=== PATIENT | male | born 1975 | race Two or more races ===

== ENCOUNTER 2018-09-30 01:30 | Emergency (ER) | payer SELFPAY ==
[~2018-09-30] VITALS: Ht 177.8 cm; Wt 79.4 kg
[2018-09-30 03:16] LABS: Basophils # (auto) 0.1 uL; Basophils % (auto) 0.4 % (0.0-2.0); Eosinophils # (auto) 0.2 uL; Eosinophils % (auto) 1.1 % (0.0-7.0); Hematocrit 38.7 % (41.0-53.0); Hemoglobin 12.8 g/dL (13.5-17.5); Lymphocytes # (auto) 1.4 uL; Lymphocytes % (auto) 8.6 % (10.0-50.0); Mean Corpuscular Hemoglobin 28.4 pg (28.0-32.0); Mean Corpuscular Volume 85.9 fL (80.0-100.0); Monocytes # (auto) 1.3 uL; Neutrophils # (auto) 13.8 uL; Neutrophils % (auto) 81.9 % (37.0-80.0); Platelet Count (auto) 433 10^3/uL (140-450); Red Cell Distribution Width 12.6 % (11.8-14.3); White Blood Cell 16.8 10^3/uL (4.4-10.8)
[2018-09-30 03:19] VITALS: BP 112/65
[2018-09-30 03:24] LABS: Albumin 3.1 g/dL (3.4-5.0); Calcium 9.2 mg/dL (8.5-10.1); Potassium 4.3 mmol/L (3.5-5.1)
[2018-09-30 03:27] LABS: BUN/Creatinine Ratio 13.3; Bilirubin, Total 1.1 mg/dL (0.2-1.0); Total Protein 9.1 g/dL (6.4-8.2)
[2018-09-30] MEDS ORDERED: ONDANSETRON HCL 4 MG/2 ML VIAL IM ONE (05:45)
[2018-09-30] MEDS ORDERED: HYDROmorphone HCL 2 MG/ML VL IM ONE (05:45)
== END 2018-09-30 06:00 | disposition left against medical advice (07) ==
LOC: ER 01:30
DX: R51 Headache (principal); Z53.29 Procedure and treatment not carried out because of patient's decision for other reasons
CPT/HCPCS: 36415; 70490; 80053; 84443; 85025; 99281; J1170; J2405